=== PATIENT | female | born 1990 | race Caucasian/White ===

== ENCOUNTER 2019-05-01 17:53 | Emergency (ER) | payer MEDICAID, OTHER ==
[~2019-05-01] VITALS: Ht 170.2 cm; Wt 71.4 kg
[2019-05-01 18:05] VITALS: Ht 170.2 cm; Wt 71.4 kg
[2019-05-01] MEDS ORDERED: AZITHROMYCIN 500 MG TAB PO ONE (20:00)
[2019-05-01] MEDS ORDERED: LIDOCAINE 1% (MDV) 20 ML INJ SC ONE (20:00)
[2019-05-01] MEDS ORDERED: CEFTRIAXONE 250 MG INJ IM ONE (20:00)
[2019-05-01] MEDS ORDERED: ACET325T33 PO (20:45)
[2019-05-01 20:57] VITALS: BP 119/74; PULSE 77; RESP 16
--- NOTE | 2019-05-02 01:22 | ERD ---
ER Documentation Chief Complaint Chief Complaint BODYACHES, DIZZINESS, FEVER AT HOME, BLURRY VISION, ONSET 3 WEEKS HPI 28-year-old female presenting to the ED for fever, body aches fatigue dysuria. Patient stated in the room that she is concerned for STD. That she has been having unprotected sex and she believes that her partner has been unfaithful to her. Patient states she has had some discharge and burning has been going on for the past few days. Patient has past medical history of thyroid disorder. Patient denies any allergies to medication. ROS All systems reviewed and are negative except as per history of present illness. Medications Home Meds Active Scripts Acetaminophen* (Tylenol*) 325 Mg Tablet, 2 TAB PO Q6 PRN for PAIN AND OR ELEVATED TEMP, #20 TAB Prov:EDEL EPPS PA-C 05/01/19 Allergies Allergies: Coded Allergies: No Known Drug Allergies (Verified Allergy, 06/13/13) PMhx/Soc Medical and Surgical Hx: pt denies Surgical Hx History of Surgery: No Anesthesia Reaction: No Hx Neurological Disorder: No Hx Respiratory Disorders: No Hx Cardiac Disorders: No Hx Psychiatric Problems: No Hx Miscellaneous Medical Probl: Yes (Hypothyroid) Hx Alcohol Use: No Hx Substance Use: No Hx Tobacco Use: No Smoking Status: Never smoker FmHx Family History: No diabetes, No coronary disease, No other Physical Exam Vitals Vital Signs Date Temp Pulse Resp B/P (MAP) Pulse Ox O2 O2 Flow FiO2 Time Delivery Rate 05/01/19 98.9 77 16 119/74 99 20:57 (89) 05/01/19 99.4 102 16 122/80 99 18:05 (94) Physical Exam Const: No acute distress Head: Atraumatic Eyes: Normal Conjunctiva ENT: Normal External Ears, Nose and Mouth. Neck: Full range of motion. No meningismus. Resp: Clear to auscultation bilaterally Cardio: Regular rate and rhythm, no murmurs Abd: Soft, non tender, non distended. Normal bowel sounds Skin: No petechiae or rashes Back: No midline or flank tenderness Ext: No cyanosis, or edema Neur: Awake and alert Psych: Normal Mood and Affect Results 24 hrs Laboratory Tests Test 05/01/19 20:06 05/01/19 20:08 05/01/19 20:10 Urine Color STRAW Urine Clarity CLEAR Urine pH 6.0 Urine Specific Strum 1.006 Urine Ketones NEGATIVE mg/dL Urine Nitrite NEGATIVE mg/dL Urine Bilirubin NEGATIVE mg/dL Urine Urobilinogen NEGATIVE mg/dL Urine Leukocyte Esterase NEGATIVE Beny/ul Urine Microscopic RBC 1 /HPF Urine Microscopic WBC 1 /HPF Urine Hemoglobin 2+ mg/dL Urine Glucose NEGATIVE mg/dL Urine Total Protein NEGATIVE mg/dl POC Beta HCG, Qualitative NEGATIVE Bedside Urine pH (LAB) 6.0 Bedside Urine Protein (LAB) Negative Bedside Urine Glucose (UA) Negative Bedside Urine Ketones (LAB) Negative Bedside Urine Blood 2+ Bedside Urine Nitrite (LAB) Negative Bedside Urine Leukocyte Esterase Negative (L Current Medications Medications Dose Sig/Yon Start Time Status Last (Trade) Ordered Route PRN Stop Time Admin Dose Reason Admin 1,000 mg ONCE ONCE 05/01/19 DC 05/01/19 Azithromycin PO 20:00 20:07 (Zithromax) 05/01/19 20:01 Ceftriaxone 250 mg ONCE ONCE 05/01/19 DC 05/01/19 Sodium IM 20:00 20:07 (Rocephin) 05/01/19 20:01 Lidocaine 20 ml ONCE ONCE 05/01/19 DC 05/01/19 (Xylocaine SC 20:00 20:07 1% (Mdv) 20 05/01/19 20:01 ml) Procedures/MDM Medications given in ER: Ceftriaxone Azithromycin Patient tolerated medication well with no adverse reactions. Patient reported improvement in pain. Medical decision making: Patient is 28-year-old female presenting to the ED for multiple complaints. Krishan bianchi is most concerned with possible encounter with an STD. Patient states that she does have some burning with urination and vaginal discharge. The patient denies any lesions in her vaginal area. I spoke to the patient about being treated empirically for gonorrhea chlamydia along with sending out urine culture. The patient is agreement this treatment plan. Azithromycin and c eftriaxone was given in the ED. The patient tolerated the medication without any side effects. The patient remained afebrile with vital stable. At this time I have low suspicion for syphilis, herpes, PID, toxic shock syndrome, ectopic , , ovarian torsion, appendicitis, sepsis. Advised the patient that she needs follow-up with her primary care provider for resc reening and to not have sexual intercourse for 1 week. I advised the patient she needs to speak to her partner if the results come back positive. The patient is agreement to the treatment plan and had no further questions upon discharge Prescription for home: Tylenol I have discussed with the patient proper use and common side effects to expert with the medication . I advised the patient/family to speak with the pharmacist dispensing the medication to be advised of any potential drug interactions with other medication or supplements they may be taking. Discharge: At this time, patient is stable for discharge and outpatient management. I have instructed the patient to follow-up with his\her primary care physician in 1 to 2 days. I have discussed with the patient the possibility of needing to see a specialist for further work-up and imaging studies if symptoms persist. I have instructed the patient to promptly return to the ER for any new or worsening symptoms including increased pain, fever, nausea, vomiting, weakness or LOC. The patient and\or family expressed understanding of and agreement with this plan. All questions were answered. Home care instructions were provided. Disclaimer: Inadvertent spelling and grammatical errors are likely due to EHR\dictation software use and do not reflect on the overall quality of patient care. Also, please note that the electronic time recorded on the note does not necessarily reflect the actual time of the patient encounter. Departure Diagnosis: Primary Impression: Cystitis Additional Impression: Exposure to STD Condition: Stable Patient Instructions: Cervicitis (Std), Treated Referrals: [facility] YOU HAVE RECEIVED A MEDICAL SCREENING EXAM AND THE RESULTS INDICATE THAT YOU DO NOT HAVE A CONDITION THAT REQUIRES URGENT TREATMENT IN THE EMERGENCY DEPARTMENT. FURTHER EVALUATION AND TREATMENT OF YOUR CONDITION CAN WAIT UNTIL YOU ARE SEEN IN YOUR DOCTORS OFFICE WITHIN THE NEXT 1-2 DAYS. IT IS YOUR RESPONSIBILITY TO MAKE AN APPOINTMENT FOR FOLOW-UP CARE. IF YOU HAVE A PRIMARY DOCTOR --you should call your primary doctor and schedule an appointment IF YOU DO NOT HAVE A PRIMARY DOCTOR YOU CAN CALL OUR PHYSICIAN REFERRAL HOTLINE AT IF YOU CAN NOT AFFORD TO SEE A PHYSICIAN YOU CAN CHOSE FROM THE FOLLOWING [facility] [address] [facility] [address] [email or web address] [address] [facility] [address] [facility] [address] [facility] [facility] [address] [facility]. [facility] YOU HAVE RECEIVED A MEDICAL SCREENING EXAM AND THE RESULTS INDICATE THAT YOU DO NOT HAVE A CONDITION THAT REQUIRES URGENT TREATMENT IN THE EMERGENCY DEPARTMENT. FURTHER EVALUATION AND TREATMENT OF YOUR CONDITION CAN WAIT UNTIL YOU ARE SEEN IN YOUR DOCTORS OFFICE WITHIN THE NEXT 1-2 DAYS. IT IS YOUR RESPONSIBILITY TO MAKE AN APPOINTMENT FOR FOLOW-UP CARE. IF YOU HAVE A PRIMARY DOCTOR --you should call your primary doctor and schedule and appointment IF YOU DO NOT HAVE A PRIMARY DOCTOR YOU CAN CALL OUR PHYSICIAN REFERRAL HOTLINE AT . IF YOU CAN NOT AFFORD TO SEE A PHYSICIAN YOU CAN CHOSE FROM THE FOLLOWING [facility]: [facility] [address] [place] [address] [facility] [address] [place] [address] [facility] + [facility] [address] [place] [address] Additional Instructions: Return to this facility in 2 DAYS for a follow-up exam.Return sooner if your condition worsens. EDEL EPPS PA-C May 02, 2019 01:22
== END 2019-05-01 20:58 | disposition home or self-care (01) ==
LOC: FTE 17:53
DX: N30.90 Cystitis, unspecified without hematuria (principal); E03.9 Hypothyroidism, unspecified; Z20.2 Contact with and (suspected) exposure to infections with a predominantly sexual mode of transmission
CPT/HCPCS: 81001; 81025; 87591; 96372; J0696; Z7502; Z7610; 81003